=== PATIENT | female | born 1995 | race Caucasian/White ===

== ENCOUNTER → 2022-05-29 | Outpatient (CLI) | payer OTHER, SELFPAY ==
[2022-05-29 12:38] LABS: T4 Free Direct 0.81 ng/dL (0.76-1.46)
== END | disposition home or self-care (01) ==
LOC: LAB 09:14
PROVIDERS: Referring Provider Internal Medicine Endocrinology, Diabetes & Metabolism; Visit Provider Internal Medicine Endocrinology, Diabetes & Metabolism
DX: E03.8 Other specified hypothyroidism (principal); E06.3 Autoimmune thyroiditis
CPT/HCPCS: 36415; 84439; 84443

== ENCOUNTER → 2022-07-08 | Outpatient (CLI) | payer OTHER, SELFPAY ==
--- NOTE | 2022-07-08 10:29 | US_ITS ---
STUDY: ULTRASOUND TRANSVAGINAL CLINICAL: Female, 27 years old. Abnormal uterine bleeding TECHNIQUE: Transvaginal COMPARISON: None. FINDINGS: Normal uterine size measuring 6.4 cm in maximal craniocaudal dimension. There are no myometrial masses. Normal endometrial thickness measuring 13-14 mm. There are no endometrial masses, and there is no fluid in the endometrial cavity. Normal uterine cervix. Normal right ovary, measuring 3.5 x 3.4 x 2.3 cm. There are multiple follicles without a dominant cyst. Normal left ovary, measuring 4.0 x 2.3 x 2.3 cm. There are multiple follicles without a dominant cyst. There is mild free fluid in the pelvis. There are similar sized ovarian cysts along the periphery of both ovaries which can be seen with PCOS. Please correlate with lab results and physical findings US/Transvaginal Non- IMPRESSION: No suspicious adnexal mass, mild free fluid in the cul-de-sac is likely physiologic Uterus is sonographically normal for age There are similar sized follicles on the periphery of both ovaries which can be seen with PCOS. Please correlate with lab results and physical findings Electronically Signed: Leroy Valadez MD at 13:01 EST ,
== END | disposition home or self-care (01) ==
LOC: US 10:28
PROVIDERS: Referring Provider Registered Nurse; Visit Provider Registered Nurse
DX: N93.9 Abnormal uterine and vaginal bleeding, unspecified (principal)
CPT/HCPCS: 76830

== ENCOUNTER → 2022-08-25 | Outpatient (CLI) | payer OTHER, SELFPAY ==
[2022-08-25 11:41] LABS: T4 Free Direct 1.68 ng/dL (0.76-1.46); Thyroid Stim Hormone (TSH) 0.33 uIU/mL (0.358-3.74)
== END | disposition home or self-care (01) ==
LOC: LAB 09:22
PROVIDERS: Referring Provider Internal Medicine Endocrinology, Diabetes & Metabolism; Visit Provider Internal Medicine Endocrinology, Diabetes & Metabolism
DX: E03.8 Other specified hypothyroidism (principal); E06.3 Autoimmune thyroiditis
CPT/HCPCS: 36415; 84439; 84443

== ENCOUNTER → 2023-08-30 | Outpatient (CLI) | payer OTHER, SELFPAY ==
[2023-08-30 14:58] LABS: T4 Free Direct 1.62 ng/dL (0.76-1.46); Thyroid Stim Hormone (TSH) < 0.01 uIU/mL (0.358-3.74)
--- OUTSIDE RECORDS SUMMARY | 2023-08-30 15:34 | XMS RPT_ITS | CCD ---
Author Name Unknown Address [address] [place] [address] Organization [facility] Care Team Providers Care Laboratory Scientist Name Role Phone RAMON CHOI DO Admitting Unavailable RAMON CHOI DO Attending Unavailable RAMON CHOI DO Primary Care Unavailable BETZAIDA JOHNSTON Consulting Unavailable BETZAIDA JOHNSTON Referring Unavailable PROVIDER, UNKNOWN Consulting [facility]available [facility] Admitting Unava ilable [place], [facility] Attending Unava ilable [facility], [facility] Primary Care Unava ilable BETZAIDA JOHNSTON Consulting Unavailable PROVIDER, UNKNOWN Consulting Unavailable MARCELLO GUADARRAMA MD Admitting Unavailable MARCELLO GUADARRAMA MD Attending Unavailable MARCELLO GUADARRAMA MD Primary Care Unavailable BETZAIDA JOHNSTON Consulting Unavailable PROVIDER, UNKNOWN Consulting Unavailable NATIVIDAD MONTENEGRO DO Admitting Unavailable NATIVIDAD MONTENEGRO DO Attending Unavailable NATIVIDAD MONTENEGRO DO Primary Care Unavailable BETZAIDA JOHNSTON Consulting Unavailable BETZAIDA JOHNSTON Referring Unavailable PROVIDER, UNKNOWN Consulting Unavailable Problems Problem Classification Problem Date Documented Da te Episodic/Chronic Superficial injury; contusion (3 sources) Superficial foreign body of left hand, initial encounter; Translations: [Superficial foreign body of left hand, initial encounter] Onset: 05-09-2021 Episodic Results Test Name Value Interpretation Reference Range Facil ity Encounters Encounter Date Encounter Type Care Provider Facility Start: 01-25-2022 End: 01-26-2022 Emergency department patient visit RAMON BRAY [facility] Start: 07-19-2021 End: 07-19-2021 ambulatory MARCELLO SORIANO [facility] Start: 05-09-2021 End: 05-10-2021 Emergency department patient visit NATIVIDAD HORN [facility] Start: 04-07-2021 End: 04-07-2021 [facility] Payers Date Payer Category Payer Unknown [id number] 1996 Unknown [id number] 1996 Unknown [id number] Unknown [id number] Worker's Compensation [id number] Summary Purpose Family History No Family History Records Found Advance Directives No Advanced Directives Records Found Additional Source Comments INFORMATION SOURCE (unrecogn ized section and content) FOR RECORDS PERTAINING TO PATIENTS WHO ARE OR HAVE BEEN ENROLLED IN A CHEMICAL DEPENDENCY/SUBSTANCEABUSE PROGRAM, SOME INFORMATION MAY BE OMITTED. This clinical summary was aggregated from multiple sources. Caution should be exercised in using it in the provision of clinical care. This summary normalizes information from multiple sources, and as a consequence, information in this document may materially change the coding, format and clinical context of patient data. In addition, data may be omitted in some cases. CLINICAL DECISIONS SHOULD BE BASED ON THE PRIMARY CLINICAL RECORDS. [employer] provides no warranty or guarantee of the accuracy or completeness of information in this document.
== END | disposition home or self-care (01) ==
PROVIDERS: Referring Provider Internal Medicine Endocrinology, Diabetes & Metabolism; Visit Provider Internal Medicine Endocrinology, Diabetes & Metabolism
DX: E03.8 Other specified hypothyroidism (principal); E06.3 Autoimmune thyroiditis; E28.2 Polycystic ovarian syndrome; E66.9 Obesity, unspecified
CPT/HCPCS: 36415; 84439; 84443

== ENCOUNTER → 2023-11-30 | Outpatient (CLI) | payer OTHER, SELFPAY ==
[2023-11-30 14:51] LABS: T4 Free Direct 1.44 ng/dL (0.76-1.46); Thyroid Stim Hormone (TSH) 0.02 uIU/mL (0.358-3.74)
== END | disposition home or self-care (01) ==
LOC: LAB 13:57
PROVIDERS: Referring Provider Nurse Practitioner Family; Visit Provider Nurse Practitioner Family
DX: E03.8 Other specified hypothyroidism (principal); E06.3 Autoimmune thyroiditis
CPT/HCPCS: 36415; 84439; 84443

== ENCOUNTER → 2024-05-27 | Outpatient (CLI) | payer OTHER, SELFPAY ==
[2024-05-27 15:00] LABS: AST(SGOT) 23 U/L (15-37); Alanine Aminotransfer ALT/SGPT 62 U/L (13-56); Albumin, Serum 3.6 g/dL (3.2-5.0); Alkaline Phosphatase 97 U/L (45-117); Anion Gap 7 (5-15); BUN 13 mg/dL (7-18); BUN/Creat Ratio 20.4 RATIO (10-20); Calcium,Total 9.1 mg/dL (8.5-10.1); Chloride 109 mmol/L (98-107); Creatinine, Serum 0.64 mg/dL (0.55-1.02); EST Glomerular Filtration Rate 118 mL/min (>60); Est Glom Filt Rate - Afr Amer 143 mL/min (>60); Globulin 3.7 g/dL (2.2-4.2); Glucose 79 mg/dL (74-106); Potassium 3.9 mmol/L (3.5-5.1); Protein, Total 7.3 g/dL (6.4-8.2); Sodium Level 140 mmol/L (136-145); T4 Free Direct 1.19 ng/dL (0.76-1.46); Thyroid Stim Hormone (TSH) 0.323 uIU/mL (0.358-3.740)
== END | disposition home or self-care (01) ==
LOC: LAB 13:10
PROVIDERS: Referring Provider Internal Medicine Endocrinology, Diabetes & Metabolism; Visit Provider Internal Medicine Endocrinology, Diabetes & Metabolism
DX: E03.8 Other specified hypothyroidism (principal); E06.3 Autoimmune thyroiditis; E28.2 Polycystic ovarian syndrome
CPT/HCPCS: 36415; 80053; 84439; 84443